=== PATIENT | female | born 1965 | race Caucasian/White ===

== ENCOUNTER 2016-10-26 15:07 | Outpatient (CLI) | payer OTHER ==
--- NOTE | 2016-10-26 20:20 | CT ---
CT OF THE BRAIN WITH AND WITHOUT CONTRAST 10/26/16 Comparison is made with a prior CT of 11/09/04. I also reviewed an MRI of the brain report from 2012. The noncontrast study shows normal sized ventricles with no shift. No intracranial bleeding, mass, o r sign of acute stroke was found. Once IV contrast was given, there were no areas of pathological enhancement. Watson-white distinction was normal. No mass densities were apparent. The opacified vessels were unremarkable. IMPRESSION: No significant intracranial findings. POS: HOME
== END 2016-10-26 15:08 | disposition home or self-care (01) ==
LOC: BURCT 15:07
PROVIDERS: ATTEND Family Medicine
DX: G44.85 Primary stabbing headache (principal)
CPT/HCPCS: 70470

== ENCOUNTER 2018-03-23 18:32 | Emergency (ER) | payer OTHER ==
[2018-03-23] MEDS ORDERED: hydrOXYzine 25 MG TAB ONE (19:08)
== END 2018-03-23 19:40 | disposition home or self-care (01) ==
LOC: BURERS 18:32
DX: F41.9 Anxiety disorder, unspecified (principal); E03.9 Hypothyroidism, unspecified; F32.9 Major depressive disorder, single episode, unspecified; F17.210 Nicotine dependence, cigarettes, uncomplicated; Z79.82 Long term (current) use of aspirin; Z79.899 Other long term (current) drug therapy
CPT/HCPCS: 99283

== ENCOUNTER 2018-06-24 17:16 | Outpatient (CLI) | payer OTHER ==
--- NOTE | 2018-06-24 18:02 | RAD ---
2 VIEWS CHEST: Date: 06/24/18 COMPARISON: 06/16/15. HISTORY: Bronchitis. FINDINGS: Two views of the chest show normal sized cardiomediastinal silhouette. There is no evidence of consol idation, mass, or pleural effusion. Degenerative changes and postsurgical changes are seen in the spi ne. Cholecystectomy clips are seen. IMPRESSION: No evidence of acute cardiopulmonary disease. POS: [facility]
== END 2018-06-24 17:17 | disposition home or self-care (01) ==
LOC: BURRAD 17:16
PROVIDERS: ATTEND Family Medicine
DX: J40 Bronchitis, not specified as acute or chronic (principal)
CPT/HCPCS: 71046